=== PATIENT | female | born 2000 | race Caucasian/White ===

== ENCOUNTER 2021-01-16 21:58 | Emergency (ER) | payer SELFPAY ==
[2021-01-16] MEDS ORDERED: Ibuprofen 600 MG Tab PO ONE (22:51)
[2021-01-16] MEDS ORDERED: Acetaminophen/HYDROcodone 325-5 MG Tab PO ONE (22:51)
[2021-01-16] MEDS ORDERED: Sulfamethoxazole/Trimethoprim 800-160 MG Tab PO ONE (22:51)
--- NOTE | 2021-01-16 22:52 | EDM.PDOC ---
ED HPI GENERAL MEDICAL PROBLEM - General Chief Complaint: Skin Complaint Stated Complaint: POSSIBLE CYST ON TAILBONE Time Seen by Provider: 01/16/21 22:25 - History of Present Illness INITIAL COMMENTS - FREE TEXT/NARRATIVE: HISTORY AND PHYSICAL: History of present illness: This is a 20-year-old female who presents ER today secondary to a painful tender swelling to her elbow. Patient reports pain is been there for 2 to 3 days. Patient denies any other symptomatology. Patient reports no prior symptoms like this in the past. Patient denies any recent fevers, shakes, chills, nausea, vomiting, diarrhea, dysuria, frequency, urgency, chest pain, shortness of breath. Review of systems: As per history of present illness and below otherwise all systems reviewed and negative. Past medical history: As per history of present illness and as reviewed below otherwise noncontributory. Surgical history: As per history of present illness and as reviewed below otherwise noncontributory. Social history: No reported history of drug or alcohol abuse. Family history: As per history of present illness and as reviewed below otherwise noncontributory. Physical exam: This patient was seen and evaluated during the 2019 SARS-CoV-2 novel coronavirus pandemic period. Community viral transmission is ongoing at time of this encounter and the emergency department is operating under pandemic response procedures. Constitutional: Patient is oriented to person, place, and time. Appears well- developed and well-nourished. No distress. HEENT: Moist mucous membranes Head: Normocephalic and atraumatic Eyes: Right eye exhibits no discharge. Left eye exhibits no discharge. No scleral icterus Neck: Normal range of motion. No tracheal deviation present. Cardiovascular: Normal rate and regular rhythm. Pulmonary: Effort normal, no respiratory distress. Abdominal: No distention Musculoskeletal: Normal range of motion Neurologic: Alert and oriented to person, place and time. Skin: [place], warm and dry. Psychiatric: Normal mood and affect. Behavior is normal. Judgment and thought content normal. Nursing note and vital signs have been reviewed Patient's ER physical exam is significant for swelling, tenderness, warmth to her pilonidal region. Diagnostics: [] Therapeutics: [] Assessment and plan: 20-year-old female with a pilonidal cyst/abscess. I discussed the options with the patient and she prefers incision and drainage at this time. After 7 cc of lidocaine injected into the subdermal region of the abscess, 11 blade scalpel was utilized to create a 2 cm incision. A curved forceps were utilized to break up loculations. A moderate amount of purulent odorous pus was expressed. Wound was packed with 1 inch iodoform gauze. Patient will be started on Bactrim DS 2 tablets p.o. twice daily x10 days. Patient was given ibuprofen and [place] here in the ED and be discharged home with the same. Patient instructed that she will need wound check in 2 days for packing change. Reassessment at the time of disposition demonstrates that the patient is in no acute distress. The patient has remained stable throughout the entire ED visit and is without objective evidence for acute process requiring urgent intervention or hospitalization. The patient is stable for discharge, counseling is provided as documented above, discussed symptomatic treatment and specific conditions for return. I have spoken with the patient/caregiver and discussed todays findings, in addition to providing specific details for the plan of care. Questions are answered and there is agreement with the plan. Definitive disposition and diagnosis as appropriate pending reevaluation and review of above. Upper Buttock Pain Score (Numeric/FACES): 10 - Related Data Allergies Allergy/AdvReac Type Severity Reaction Status Date / Time No Known Allergies Allergy Verified 01/16/21 22:25 Home Meds: Home Meds Acetaminophen/HYDROcodone [[place] 325-5 MG] 1 tab PO Q6H PRN #12 tablet 01/16/21 [Rx] Ibuprofen 600 mg PO Q6HR PRN #30 tablet 01/16/21 [Rx] Sulfamethoxazole/Trimethoprim [Bactrim Ds Tablet] 2 each PO BID #40 tablet 01/16/21 [Rx] Past Medical History - Past Health History Medical/Surgical History: Denies Medical/Surgical History Social & Family History - Family History Family Medical History: No Pertinent Family History - Recreational Drug Use Recreational Drug Use: No ED ROS GENERAL - Review of Systems Review Of Systems: See Below ED EXAM, SKIN/RASH Exam: See Below ED SKIN PROCEDURES - I&D Skin Prep: Providone-Iodine (Betadine) Local Anesthesia: Lidocaine: 1% Plain Local Anesthetic Volume: Other (7 cc) Area Incised With: 11 Blade Drainage: Purulent, Moderate Amount Probed to Break Up Loculations: Yes Packed With: 1 in. Iodoform Sterile Dressinx4(s) Complications: No Course - Vital Signs Last Recorded V/S: Last Vital Signs Temp 98.2 F 01/16/21 22:13 Pulse 136 H 01/16/21 22:13 Resp 16 01/16/21 22:13 BP 145/84 H 01/16/21 22:13 Pulse Ox 97 01/16/21 22:13 - Orders/Labs/Meds Meds: Medications Discontinued Medications Generic Name Dose Route Start Last Admin Trade Name Radha PRN Reason Stop Dose Admin Lidocaine HCl 10 ml 01/16/21 22:28 Lidocaine 1% 5 Ml Sdv INJECT 01/16/21 22:29 ONETIME ONE Lidocaine HCl Confirm 01/16/21 22:30 Lidocaine 1% 5 Ml Sdv Administered 01/16/21 22:31 Dose 10 ml .ROUTE .STK-MED ONE Departure - Departure Time of Disposition: 22:47 Disposition: Home, Self-Care 01 Condition: Good Clinical Impression: Pilonidal cyst with abscess - Discharge Information Instructions: Pilonidal Cyst, Pilonidal Cyst Drainage, Care After Referrals: PCP,None [Primary Care Provider] - Additional Instructions: You were seen and evaluated in the ER today secondary to an infected pilonidal cyst. Your cyst has been drained after being cut open with a scalpel. The cyst has been packed with 1 inch gauze to assist with keeping the abscess cavity open to allow it to heal with the antibiotics in your system. Please return to the ER or see your doctor in 2 days for wound check and packing change. You were given a prescription for ibuprofen and [place] to assist you with your pain and discomfort. You were given a prescription for Bactrim DS 2 tablets twice a day for 10 days. The following information is given to patients seen in the emergency department who are being discharged to home. This information is to outline your options for follow-up care. We provide all patients seen in our emergency department with a follow-up referral. The need for follow-up, as well as the timing and circumstances, are variable depending upon the specifics of your emergency department visit. If you don't have a primary care physician on staff, we will provide you with a referral. We always advise you to contact your personal physician following an emergency department visit to inform them of the circumstance of the visit and for follow-up with them and/or the need for any referrals to a consulting specialist. The emergency department will also refer you to a specialist when appropriate. This referral assures that you have the opportunity for follow-up care with a specialist. All of these measure are taken in an effort to provide you with optimal care, which includes your follow-up. Under all circumstances we always encourage you to contact your private physician who remains a resource for coordinating your care. When calling for follow-up care, please make the office aware that this follow-up is from your recent emergency room visit. If for any reason you are refused follow-up, please contact the [facility] Emergency Department at and asked to speak to the emergency department charge nurse. [facility] [address] [place] [id number] [facility] [address] [place] [id number] Sepsis Event Note (ED) - Evaluation Sepsis Screening Result: No Definite Risk - Focused Exam Vital Signs: Vital Signs Temp Pulse Resp BP Pulse Ox 01/16/21 22:13 98.2 F 136 H 16 145/84 H 97
== END 2021-01-16 23:10 | disposition home or self-care (01) ==
LOC: MW.ED 21:58
DX: L05.01 Pilonidal cyst with abscess (principal)
CPT/HCPCS: 10060; 99283; A9270; 99282